=== PATIENT | female | born 2005 | race Caucasian/White ===

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

== ENCOUNTER 2023-01-31 13:15 | Inpatient (IN) ==
[2023-01-31 14:20] LABS: ABS Basophils 0.1 10^3/uL (0.0-0.1); ABS Eosinophils 0.2 10^3/uL (0.0-0.5); ABS Lymphocytes 2.5 10^3/uL (1.0-4.8); ABS Monocytes 0.4 10^3/uL (0.0-0.9); Eosinophil % 1.7 %; Hematocrit 38.1 % (35-45); Hemoglobin 12.4 g/dL (11.5-14.3); Lymphocyte % 22.2 %; Mean Corpuscular Hemoglobin 28.9 pg (27-33); Mean Corpuscular Hgb Conc 32.5 g/dL (31-36); Platelet Count 233 10^3/uL (150-450); Red Blood Count 4.28 10^6/uL (3.63-4.92); Red Cell Distribution Width 13.2 % (12-17); White Blood Count 11.2 10^3/uL (3.8-11.8)
[2023-01-31 14:31] LABS: Urine Appearance Cloudy; Urine Bilirubin Negative (Negative); Urine Blood Negative (Negative); Urine Color Yellow; Urine Glucose Negative (Negative); Urine Ketones Negative (Negative); Urine Nitrite Negative (Negative); Urine Protein Negative (Negative); Urine Specific Gravity 1.012 (1.002-1.030); Urine Urobilinogen Negative (Negative)
[2023-01-31 14:33] LABS: ALT 14 U/L (7-52); AST 14 U/L (13-39); Albumin 4.3 g/dL (3.2-5.2); Albumin/Globulin Ratio 1.8 (1-3); Alkaline Phosphatase 68 U/L (35-149); Anion Gap 5 mmol/L (2-16); Blood Urea Nitrogen 14 mg/dL (6-24); CO2 Carbon Dioxide 27 mmol/L (22-32); Calcium 8.8 mg/dL (8.6-10.3); Chloride 106 mmol/L (101-111); Globulin 2.4 g/dL (2-4); Glucose 107 mg/dL (70-100); Potassium 4.2 mmol/L (3.5-5.0); Sodium 138 mmol/L (135-145); Total Bilirubin 0.1 mg/dL (0.2-1.0); Total Protein 6.7 g/dL (6.4-8.9); eGFR CKD-EPI 108.8 (>60)
[2023-01-31 14:40] LABS: HCG Pregnancy < 0.60 mIU/mL
[2023-01-31 14:43] LABS: Urine Benzodiazepine Screen None Detected (None Detect); Urine Cannabinoids Screen None Detected (None Detect); Urine Opiates Screen None Detected (None Detect)
[2023-01-31 15:14] LABS: Acetaminophen < 15 mcg/mL; Alcohol, S < 13 mg/dL (<13); Lithium 0.18 mmol/L (0.6-1.2); Salicylate < 2.50 mg/dL (<30)
[2023-01-31 15:25] LABS: TSH Ultra Thyroid Stim Horm 2.03 mcIU/mL (0.34-5.60)
[2023-01-31] MEDS ORDERED: Al Hydrox/Mg Hydrox/Simet LIQ 30 ML UDC PO PRN (16:57)
[2023-01-31 20:03] VITALS: BP 105/66
[2023-01-31 20:10] LABS: Urine Benzodiazepine Screen None Detected (None Detect); Urine Buprenorphine Screen None Detected (None Detect); Urine Cannabinoids Screen None Detected (None Detect); Urine Fentanyl Screen None Detected (None Detect); Urine Hydrocodone Screen None Detected (None Detect); Urine Opiates Screen None Detected (None Detect)
[2023-02-01] MEDS: Vitamin THERAPEUTIC TAB PO SCH (10:45)
[2023-02-01] MEDS: Nicotine GUM 4MG FRUIT FLAVOR PO PRN (15:31)
[2023-02-01] MEDS ORDERED: Nicotine Lozenge mini 4 MG LOZNG.MINI MT PRN (15:58)
[2023-02-01] MEDS: NORGESTIMATE ETHINYL ESTRADIOL PO SCH (20:19)
[2023-02-01] MEDS: LUMATEPERONE 42 MG PO SCH (20:19)
[2023-02-02] MEDS: Vitamin THERAPEUTIC TAB PO SCH (10:34)
[2023-02-02] MEDS: Nicotine GUM 4MG FRUIT FLAVOR PO PRN ×3 (13:32→20:22)
[2023-02-02] MEDS: NORGESTIMATE ETHINYL ESTRADIOL PO SCH (20:20)
[2023-02-02] MEDS: LUMATEPERONE 42 MG PO SCH (20:20)
[2023-02-03] MEDS: Vitamin THERAPEUTIC TAB PO SCH (09:30)
[2023-02-03] MEDS: Nicotine GUM 4MG FRUIT FLAVOR PO PRN ×2 (15:28→19:05)
[2023-02-03] MEDS: LUMATEPERONE 42 MG PO SCH (19:04)
[2023-02-03] MEDS: NORGESTIMATE ETHINYL ESTRADIOL PO SCH (19:04)
[2023-02-04 08:38] LABS: HDL Cholesterol 59.8 mg/dL; Lithium 0.42 mmol/L (0.6-1.2)
[2023-02-04] MEDS: Vitamin THERAPEUTIC TAB PO SCH (08:54)
[2023-02-04] MEDS: Nicotine GUM 4MG FRUIT FLAVOR PO PRN (08:54)
== END 2023-02-04 12:00 | disposition home or self-care (01) | DRG 753 ==
LOC: ED 13:15 → BSU 16:57 → EDHOLD 16:57 → BSU 18:48
PROVIDERS: ADMIT Psychiatry & Neurology Psychiatry; ATTEND Psychiatry & Neurology Psychiatry

== ENCOUNTER 2023-07-27 17:35 | Inpatient (IN) ==
[2023-07-27] MEDS ORDERED: Haloperidol 5 mg/ml SDV IV/IM 5 MG/ML AMP ONE (22:03)
[2023-07-27] MEDS: Haloperidol 5 mg/ml SDV IV/IM 5 MG/ML AMP IM ONE (22:05)
[2023-07-27] MEDS ORDERED: Al Hydrox/Mg Hydrox/Simet LIQ 30 ML UDC PO PRN (22:41)
[2023-07-27] MEDS ORDERED: Nicotine GUM 2MG FRUIT FLAVOR PO PRN (23:00)
[2023-07-28 00:21] LABS: Urine Benzodiazepine Screen None Detected (None Detect); Urine Cannabinoids Screen None Detected (None Detect); Urine Opiates Screen None Detected (None Detect)
[2023-07-28 01:09] VITALS: BP 120/97
[2023-07-28] MEDS: Vitamin THERAPEUTIC TAB PO SCH (09:56)
[2023-07-28] MEDS: LUMATEPERONE 42 MG PO SCH (21:20)
[2023-07-28] MEDS: NORGESTIMATE ETHINYL ESTRADIOL PO SCH (21:21)
== END 2023-07-29 12:40 | disposition home or self-care (01) | DRG 753 ==
LOC: ED 17:35 → EDHOLD 22:39 → BSU 07-28 01:02
PROVIDERS: ADMIT Psychiatry & Neurology Psychiatry; ATTEND Psychiatry & Neurology Psychiatry